=== PATIENT | female | born 1945 | race Caucasian/White ===

== ENCOUNTER 2019-12-27 19:41 | Inpatient (IN) | payer MEDICARE, OTHER, SELFPAY ==
--- NOTE | ~2019-12-27 | CT_ITS ---
EXAMINATION: CT brain wo con DATE: 12/27/2019 22:12 INDICATION: Altered mental status. TECHNIQUE: Computed tomography (CT) of the head was performed without intravenous contrast. The mA wa s adjusted according to patient size. Iterative reconstruction technique was employed. The dose-lengt h product was 605.33 mGy-cm. COMPARISON: None FINDINGS: There are scattered areas of low attenuation in the cerebral white matter. There is no intr acranial hemorrhage, acute infarction, or abnormal intracranial mass lesion. The ventricles are jolie l in size. There are likely changes of right ocular lens replacement surgery. There is mild mucosal t hickening in the ethmoid sinuses. There is a trace left mastoid effusion. IMPRESSION: 1. Mild nonspecific cerebral white matter disease, which likely represents chronic small vessel ische thiago disease. Reviewed, dictated and finalized at location A. IMPRESSION: 1. 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
--- NOTE | ~2019-12-27 | XR_ITS ---
EXAMINATION: XR chest 1V portable DATE: 12/27/2019 21:13 INDICATION: Fever. TECHNIQUE: A single frontal view of the chest was obtained. COMPARISON: None. FINDINGS: There is mild atelectasis in left lower lung zone. No pleural effusion or pneumothorax. The heart size is normal. IMPRESSION: 1. Mild atelectasis in left lower lung zone. Reviewed, dictated and finalized at location A.
[2019-12-27 19:41] VITALS: BP 133/58; PULSE 89; RESP 20; TEMP 38.1; O2SAT 92
--- NOTE | 2019-12-27 19:50 | ED.FEVER ---
HPI - Fever General Chief Complaint: Fever Stated Complaint: fever/aphasia Time Seen by Provider: 12/27/19 19:47 History of Present Illness HPI Narrative: Not feeling well since yesterday. Developed sweats, chills, and weakness over night. She was unable to get out of bed and urinated on herself. This morning she had a fever. She has not improved throughout the day. She also reports 3 loose stools yesterday. No SOB, although O2 sat of 90%. No nausea, vomiting, dysuria, abdominal pain, cough. EMS reports aphasia. This does not appear to be present. Related Data Home Medications Medication Instructions Recorded Confirmed atenolol 50 mg PO Q12H 12/28/19 12/28/19 citalopram 20 mg PO DAILY 12/28/19 12/28/19 esomeprazole magnesium [Nexium] 40 mg PO DAILY 12/28/19 12/28/19 gabapentin 600 mg PO Q12H 12/28/19 12/28/19 losartan-hydrochlorothiazide 1 tablet PO DAILY 12/28/19 12/28/19 rosuvastatin [Crestor] 10 mg PO DAILY 12/28/19 12/28/19 warfarin See Rx Instructions .ROUTE .COMPLEX 12/28/19 12/28/19 warfarin See Rx Instructions .ROUTE .COMPLEX 12/28/19 12/28/19 Allergies Allergy/AdvReac Type Severity Reaction Status Date / Time No Known Allergies Allergy Unverified 02/25/15 13:27 Review of Systems Review of Systems: All systems reviewed & are unremarkable except as noted in HPI and below Constitutional: Constitutional: Reports chills and Reports fever(s) ENT: Denies dizziness and Denies sore throat Cardiovascular: Cardiovascular: Denies chest pain Respiratory: Respiratory: Denies cough, Denies dyspnea and Denies wheezing Gastrointestinal: Gastrointestinal: Denies abdominal pain, Reports diarrhea, Denies nausea and Denies vomiting Genitourinary: Genitourinary: Denies hematuria, Denies dysuria and Reports urinary incontinence Neurologic: Denies headache(s), Denies focal weakness and Reports weakness Endocrine: Endocrine: Denies polydipsia [facility] Past Medical History Medical History (Updated 12/28/19 @ 21:20 by Bg Junior MD) Basal cell carcinoma Depression GERD (gastroesophageal reflux disease) History of DVT of lower extremity Hyperlipidemia Hypertension, essential Surgical History Surgical History (Updated 12/28/19 @ 11:36 by Karissa Valentin PA-C) History of total right hip arthroplasty Social History Social History (Updated 12/28/19 @ 11:36 by Karissa Valentin PA-C) Social History: Patient has never drank in never smoked and does not do drugs. She is a retired [employer] worker. She would like to be a full code. If she is unable to make decisions herself she appoints her daughter Kate to make decisions for her Smoking status: Never smoker Second hand tobacco smoke exposure: Yes Alcohol intake: never Substance use: never Substance use type: does not use Spiritual care concerns: No Exam Const: General: no acute distress, alert and ill appearing Orientation/consciousness: patient oriented x3 HENMT: Head: normal to inspection Resp: Effort & Inspection: normal respiratory effort Auscultation: clear to auscultation bilaterally Cardio: Rate: regular rate Rhythm: regular rhythm Peripheral pulses: Peripheral pulses 2+ throughout GI: Inspection: non-distended GI Palp: Yes Soft to palpation and No Tenderness to palpation present (GI) Skin: General skin exam: normal color Rashes: no rashes Wounds: no wounds Neuro: General: patient oriented x3, moves all extremities, no focal motor deficits and CN's II-XI intact bilaterally Speech: normal speech Extrem: General: normal to inspection Course Vital Signs Vital signs: Vital Signs Temperature 38.1 C H 12/27/19 19:41 Pulse Rate 89 12/27/19 19:41 Respiratory Rate 20 12/27/19 19:41 Blood Pressure 133/58 L 12/27/19 19:41 Pulse Oximetry 92 12/27/19 19:41 Temperature 37.7 C H 12/28/19 16:00 Pulse Rate 62 12/28/19 20:56 Respiratory Rate 15 12/28/19 16:00 Blood Pressure 144/67 H 12/28/19 16:00
[2019-12-27] MEDS: SODIUM CHLORIDE 0.9% IV 1,000 ML 999 ML IV CONT ×2 (20:04→21:53)
[2019-12-27 20:16] LABS: Basophils Percent Auto 0.1 % (0.2-1.2); Hemoglobin 13.6 g/dL (12.0-15.0); Immature Granulocyte Absolute 0.08 K/mm3 (0.00-0.031); Immature Granulocyte Percent A 0.6 % (0-0.5); Lymphocytes Absolute Auto 0.81 K/mm3 (0.9-3.2); Lymphocytes Percent Auto 5.6 % (18.3-44.2); Mean Corpuscular HGB Conc 32.4 g/dl (32-36); Mean Corpuscular Hemoglobin 29.6 pg (26-34); Mean Corpuscular Volume 91.3 fl (80-100); Mean Platelet Volume 10.5 fl (7.4-10.4); Monocytes Absolute Auto 0.7 K/mm3 (0.1-0.6); Monocytes Percent Auto 4.5 % (2.6-8.5); Neutrophils Absolute Auto 12.8 K/mm3 (1.3-6.7); Neutrophils Percent Auto 89.2 % (45.5-73.1); Platelet Count Result 144 k/mm3 (150-375); Red Cell Distribution Width 13.9 % (11.5-14.5); White Blood Count 14.4 K/mm3 (4.5-10.0)
[2019-12-27 20:26] LABS: INR 2.1; Prothrombin Time 22.8 Seconds (11.1-14.7)
[2019-12-27 20:27] LABS: Lactic Acid Reflex 0.9 mmol/L (0.7-2.1); Partial Thromboplastin Time 37.7 SECONDS (22.3-36.8)
[2019-12-27 20:29] LABS: Alanine Aminotransferase 10 U/L (4-35); Albumin Level 3.6 g/dL (3.5-5.1); Alkaline Phosphatase 86 U/L (38-126); Aspartate Amino Transferase 17 U/L (14-36); Bilirubin,Total 0.5 mg/dL (0.2-1.3); Blood Urea Nitrogen 21 mg/dL (7-17); Calcium 8.6 mg/dL (8.4-10.2); Carbon Dioxide 30 mmol/L (22-30); Chloride 101 mmol/L (98-107); Estimated CRCL calculation 52 ml/min; Estimated Glomerular Filt Rate 49; Glucose 101 mg/dL (65-105); Potassium 3.7 mmol/L (3.4-5.0); Sodium 133 mmol/L (137-145)
[2019-12-27 20:38] VITALS: BP 94/60; PULSE 71; RESP 18; O2SAT 90
[2019-12-27 20:39] LABS: CRP 6.4 mg/dL (<1.0)
[2019-12-27 21:08] LABS: Add Urine Microscopic? YES; Appearance Urine Clear (Clear); Bilirubin Urine 1+ (Negative); Blood Urine 1+ (Negative); Color Urine Yellow (Yellow); Glucose Urine UA Negative (Negative); Ketones Urine Trace mg/dL (Negative); Leukocyte Esterase Ur Negative LEU/UL (Negative); Mucus Urine Heavy /lpf; Nitrate Urine Negative (Negative); Protein Urine 1+ mg/dL (Negative); Squamous Epithelial Cell Urine Many /hpf (Few)
[2019-12-27 21:09] LABS: Specific Grav Ur 1.034 (1.001-1.035)
[2019-12-27 21:21] VITALS: BP 86/50; PULSE 67; RESP 18; O2SAT 92
[2019-12-27 22:39] VITALS: BP 91/46; PULSE 62; RESP 24; O2SAT 100
[2019-12-27 23:45] VITALS: BP 108/50; PULSE 64; RESP 18; O2SAT 98
[2019-12-28] VITALS (18 sets, daily range): BP systolic 88–150; BP diastolic 47–72; PULSE 62–85; RESP 15–25; TEMP 36.6–38.3; O2SAT 94–100; BMI 39.3
--- NOTE | 2019-12-28 00:40 | PC.NURSE ---
This patient, Stacey Weiss, was admitted to Intensive Care Unit-6. Patient/family oriented to hospital policies and general routines including ID bracelet, bed and alarms, visiting hours, pain management, procedures, bathroom and other care routines, personal items, smoking policy, room service/diet, and visiting hours. Valuables list has been completed. Information on how to activate the Rapid Response Team has been discussed. Patient/Family are encouraged to report perceived risks to care and to ask questions if they do not understand what they are told or what they should do.
[2019-12-28] MEDS: LACTATED RINGERS 1,000 ML 125 ML IV CONT ×2 (01:25→10:23)
[2019-12-28] MEDS: ACETAMINOPHEN 325 MG TABLET 650 MG PO (08:00)
[2019-12-28 11:10] LABS: SARS-CoV-2 RNA PCR Negative
--- NOTE | 2019-12-28 11:24 | PM.IMHP ---
H&P: HPI History of Present Illness Chief complaint: SIRS Narrative: Stacey Weiss is a 74 year old female who has a past medical history of DVTs, hypertension, GERD, and depression who presented emergency room for fevers and altered mental status. Patient states that she was in her usual state of health when she went to bed Saturday night and woke up in the middle night freezing. She said she felt very weak and could not get up out of bed which is very unusual for her. She was not sweating at this time and was unsure if she had a temperature as she did not take it. She felt disoriented and felt like she could not think straight. She fell back asleep and when she woke up on Saturday she was still very disoriented, weak and felt like she was in a fog. She had generalized weakness but no specific weakness, numbness, tingling or asymmetrical features. Her family came over and was trying to talk to her and she felt like she could not focus. She had some soft stool Saturday x3 but other than that has no diarrhea or GI upset. She also denies cough, shortness of breath, chest pain, nausea, vomiting, dysuria, rashes, wounds, or leg swelling. She has not been around anyone who was sick and she has been social distancing. When she goes out, she wears a mask and only goes to the grocery store and straight home. She has a family history of cardiac disease but has no history of shortness of breath, chest pain or dyspnea on exertion. She had stress few years ago which was normal. Review of Systems Review of Systems: All systems reviewed & are unremarkable except as noted in HPI and below [facility] Past Medical History Medical History (Updated 12/28/19 @ 11:36 by Karissa Valentin PA-C) Basal cell carcinoma Depression GERD (gastroesophageal reflux disease) History of DVT of lower extremity Hyperlipidemia Hypertension, essential Surgical History Surgical History (Updated 12/28/19 @ 11:36 by Karissa Valentin PA-C) History of total right hip arthroplasty Social History Social History (Updated 12/28/19 @ 11:36 by Karissa Valentin PA-C) Social History: Patient has never drank in never smoked and does not do drugs. She is a retired [employer] worker. She would like to be a full code. If she is unable to make decisions herself she appoints her daughter Kate to make decisions for her Smoking status: Never smoker Second hand tobacco smoke exposure: Yes Alcohol intake: never Substance use: never Substance use type: does not use Spiritual care concerns: No Meds Home Medications and Allergies Home Medications Medication Instructions Recorded Confirmed Type atenolol 50 mg PO Q12H 12/28/19 12/28/19 History citalopram 20 mg PO DAILY 12/28/19 12/28/19 History esomeprazole magnesium [Nexium] 40 mg PO DAILY 12/28/19 12/28/19 History gabapentin 600 mg PO Q12H 12/28/19 12/28/19 History losartan-hydrochlorothiazide 1 tablet PO DAILY 12/28/19 12/28/19 History rosuvastatin [Crestor] 10 mg PO DAILY 12/28/19 12/28/19 History warfarin See Rx Instructions .ROUTE .COMPLEX 12/28/19 12/28/19 History warfarin See Rx Instructions .ROUTE .COMPLEX 12/28/19 12/28/19 History Allergies Allergy/AdvReac Type Severity Reaction Status Date / Time No Known Allergies Allergy Unverified 02/25/15 13:27 Vital Signs Vital Signs - 24 hr 12/27/19 19:41 12/27/19 20:38 12/27/19 21:21 Temperature 100.6 F H Pulse Rate 89 71 67 Respiratory Rate 20 18 18 Blood Pressure 133/58 L 94/60 L 86/50 L Pulse Oximetry 92 90 92 12/27/19 22:39 12/27/19 23:45 12/28/19 00:17 Temperature 98.2 F Pulse Rate 62 64 62 Respiratory Rate 24 H 18 18 Blood Pressure 91/46 L 108/50 L 105/51 L Pulse Oximetry 100 98 97 12/28/19 00:24 12/28/19 00:46 12/28/19 00:49 Temperature 98.2 F 98.1 F Pulse Rate 63 71 63 Respiratory Rate 20 18 Blood Pressure 105/51 L 115/54 L Pulse Oximetry 100 97 12/28/19 02:00 12/28/19 04:00 12/28/19 04:15 Temperat
--- NOTE | 2019-12-28 11:44 | ECG_ITS ---
Measurements Intervals [place] Rate: 70 P: 27 CO: 153 QRS: 18 QRSD: 86 T: 30 QT: 402 QTc: 434 Interpretive Statements SINUS RHYTHM WITH SINUS ARRHYTHMIA BORDERLINE ST-T WAVE ABNORMALITY- ANTERIOR LEADS BORDERLINE ECG Electronically Signed On 12-28-2019 14:28:37 CDT by Gabe Fine D.O.
[2019-12-28] MEDS: GABAPENTIN 300 MG CAPSULE 600 MG PO ×2 (13:37→20:57)
[2019-12-28] MEDS: atenoloL 50 MG TABLET PO ×2 (13:37→20:56)
[2019-12-28] MEDS: CITALOPRAM HYDROBROMIDE 20 MG TABLET PO (13:37)
[2019-12-28] MEDS: PANTOPRAZOLE 40 MG TABLET PO (13:37)
[2019-12-28] MEDS: ROSUVASTATIN 10 MG TABLET PO (13:38)
[2019-12-28] MEDS: WARFARIN (*PBKC) 3 MG TABLET PO (17:45)
[2019-12-28] MEDS: LACTATED RINGERS 1,000 ML 100 ML IV CONT (18:13)
--- NOTE | 2019-12-28 18:40 | PC.NURSE ---
This patient, Stacey Weiss, was transferred to [facility] via wheelchair on 12/28/19 at 1745. Personal belongings sent with patient. Report given to DARRELL Zee. Appropriate documentation sent with patient.
[2019-12-29] MEDS: LACTATED RINGERS 1,000 ML 100 ML IV CONT ×2 (04:47→15:18)
[2019-12-29 06:00] VITALS: BP 130/51; PULSE 63; RESP 20; TEMP 36.9; O2SAT 98
[2019-12-29 06:05] LABS: Basophils Percent Auto 0.4 % (0.2-1.2); Eosinophils Percent Auto 0.6 % (0-4.4); Hematocrit 38.2 % (37.0-47.0); Hemoglobin 12.1 g/dL (12.0-15.0); Immature Granulocyte Absolute 0.03 K/mm3 (0.00-0.031); Immature Granulocyte Percent A 0.6 % (0-0.5); Immature Platelet Fraction Pct 3.1 % (0.9-11.2); Lymphocytes Absolute Auto 0.61 K/mm3 (0.9-3.2); Lymphocytes Percent Auto 11.8 % (18.3-44.2); Mean Corpuscular HGB Conc 31.7 g/dl (32-36); Mean Corpuscular Volume 91.6 fl (80-100); Monocytes Absolute Auto 0.5 K/mm3 (0.1-0.6); Monocytes Percent Auto 8.9 % (2.6-8.5); Neutrophils Percent Auto 77.7 % (45.5-73.1); Platelet Count Result 121 k/mm3 (150-375); Red Blood Count 4.17 M/mm3 (4.2-5.4); Red Cell Distribution Width 13.6 % (11.5-14.5); White Blood Count 5.2 K/mm3 (4.5-10.0)
[2019-12-29 06:12] LABS: INR 1.5; Prothrombin Time 17.6 Seconds (11.1-14.7)
[2019-12-29 06:28] LABS: Alanine Aminotransferase 16 U/L (4-35); Alkaline Phosphatase 82 U/L (38-126); Aspartate Amino Transferase 32 U/L (14-36); Bilirubin,Total 0.3 mg/dL (0.2-1.3); Blood Urea Nitrogen 14 mg/dL (7-17); CRP 7.2 mg/dL (<1.0); Calcium 8.3 mg/dL (8.4-10.2); Carbon Dioxide 27 mmol/L (22-30); Chloride 104 mmol/L (98-107); Estimated CRCL calculation 63 ml/min; Estimated Glomerular Filt Rate > 60; Glucose 88 mg/dL (65-105); Lactate Dehydrogenase 399 U/L (313-618); Magnesium 1.7 mg/dL (1.6-2.3); Phosphorus 2.9 mg/dL (2.5-4.5); Potassium 3.6 mmol/L (3.4-5.0); Sodium 134 mmol/L (137-145)
[2019-12-29] MEDS: MAGNESIUM SULF 2 GM/WATER 50ML 2 GM/50 ML BAG IVPB (07:56)
[2019-12-29 07:58] VITALS: BP 132/60; PULSE 61; RESP 14; TEMP 36.9; O2SAT 94
[2019-12-29 08:00] VITALS: PULSE 77
[2019-12-29] MEDS: CITALOPRAM HYDROBROMIDE 20 MG TABLET PO (08:00)
[2019-12-29] MEDS: PANTOPRAZOLE 40 MG TABLET PO (08:00)
[2019-12-29] MEDS: atenoloL 50 MG TABLET PO ×2 (08:00→21:19)
[2019-12-29] MEDS: ROSUVASTATIN 10 MG TABLET PO (08:01)
[2019-12-29] MEDS: GABAPENTIN 300 MG CAPSULE 600 MG PO ×2 (08:01→21:20)
--- NOTE | 2019-12-29 09:55 | PM.IMPN ---
Progress Note: A&P Assessment and Plan (1) SIRS (systemic inflammatory response syndrome): Code(s): R65.10 - Systemic inflammatory response syndrome (SIRS) of non-infectious origin without acute organ dysfunction Status: Acute Assessment and Plan: Patient presents due to disorientation and shaking chills at home. BP lowest 86/50, WBC 14,000 on arrival now resolved. Etiology unclear; no evidence of infection so far. Blood cultures pending; CXR shows mild atelectasis - add incentive spirometry. Urine culture negative. She has no other viral symptoms such as runny nose, sore throat, cough, or ear pain. Stroke less likely since she has no neurological deficits and her CT brain is negative. Plan to keep patient overnight to ensure blood cultures do not show any growth prior to discharge. Monitor vitals and urine output in the interim. (2) Anticoagulated: Code(s): Z79.01 - intermediate project manager (current) use of anticoagulants Status: Acute Assessment and Plan: Patient has history of DVT x 3 in the past; now is anticoagulated on warfarin. INR 1.5 today. Continue warfarin. (3) Generalized weakness: Code(s): R53.1 - Weakness Status: Acute Assessment and Plan: Appreciate PT/OT evaluation. Sudden onset of generalized weakness attributed to fever now feeling better. (4) Hypotension: Code(s): I95.9 - Hypotension, unspecified Status: Acute Assessment and Plan: Resolved with IV fluids. Continue to monitor BP. History of HTN; home ARB-HCTZ held, remains on her home beta blockade. (5) GERD (gastroesophageal reflux disease): Code(s): K21.9 - Gastro-esophageal reflux disease without esophagitis Status: Acute Assessment and Plan: Continue PPI. (6) Depression: Code(s): F32.9 - Major depressive disorder, single episode, unspecified Status: Acute Assessment and Plan: Stable. Continue home citalopram. (7) Hyperlipidemia: Code(s): E78.5 - Hyperlipidemia, unspecified Status: Acute Assessment and Plan: Continue home statin therapy. Subjective Date/time seen: 12/29/19 09:00 Interval history: Ms. Weiss is a 74yo F admitted for evaluation of fever or unknown origin. She reports she is feeling well today and offers no complaints other than feeling tired. She denies any chest pain, shortness of breath, or cough. She has tolerated some breakfast without nausea, vomiting, or abdominal pain. She reports when at home, she was having shaking chills and these have since resolved. Review of Systems Review of Systems: Narrative: Twelve systems were reviewed with pertinent positives and negatives as per HPI. Exam Narrative: Exam Narrative: General: Female resting comfortably in bed in no acute distress. HEENT: Normocephalic, EOMI, oral mucosa moist. Cardiovascular: Rate and rhythm are regular. Respiratory: Decreased breath sounds ELIER. Respirations even and nonlabored. Tolerating room air. Abdomen: Protuberant but soft, non-tender, bowel sounds present. Extremities: Peripheral pulses intact. No edema, cyanosis, or clubbing. Neuro: No focal neurological deficits. Speech is clear. Objective Data Vital Signs Vital Signs: Last Vital Signs Temp 98.5 F 12/29/19 07:58 Pulse 77 12/29/19 08:00 Resp 14 12/29/19 07:58 BP 132/60 12/29/19 07:58 Pulse Ox 94 12/29/19 07:58 Intake/Output Intake/Output: Intake & Output 12/26/19 12/27/19 12/28/19 12/29/19 23:59 23:59 23:59 23:59 Intake Total 2100 2520 1640 Output Total 15 350 500 Balance 2085 2170 1140 Meds/Results Medications: Active Medications Generic Name Dose Route Start Last Admin Trade Name Freq PRN Reason Stop Dose Admin Acetaminop
[2019-12-29 14:24] VITALS: BP 122/62; PULSE 65; RESP 19; TEMP 36.3; O2SAT 95
[2019-12-29] MEDS: WARFARIN (*PBKC) 3 MG TABLET PO (16:56)
[2019-12-29 21:19] VITALS: PULSE 68
[2019-12-29 22:00] VITALS: BP 128/56; PULSE 60; RESP 18; TEMP 36.7; O2SAT 96
[2019-12-30] MEDS: LACTATED RINGERS 1,000 ML 100 ML IV CONT (01:23)
[2019-12-30 05:49] LABS: Hematocrit 37.1 % (37.0-47.0); Immature Platelet Fraction Pct 2.9 % (0.9-11.2); Mean Corpuscular HGB Conc 32.3 g/dl (32-36); Mean Corpuscular Hemoglobin 29.4 pg (26-34); Mean Corpuscular Volume 90.9 fl (80-100); Mean Platelet Volume 10.4 fl (7.4-10.4); Platelet Count Result 122 k/mm3 (150-375); Red Blood Count 4.08 M/mm3 (4.2-5.4); Red Cell Distribution Width 13.5 % (11.5-14.5)
[2019-12-30 05:54] LABS: INR 1.6; Prothrombin Time 18.8 Seconds (11.1-14.7)
[2019-12-30 06:00] VITALS: BP 125/54; PULSE 60; RESP 18; TEMP 36.4; O2SAT 96
[2019-12-30 06:05] LABS: Blood Urea Nitrogen 14 mg/dL (7-17); Calcium 8.1 mg/dL (8.4-10.2); Carbon Dioxide 29 mmol/L (22-30); Chloride 106 mmol/L (98-107); Estimated CRCL calculation 72 ml/min; Estimated Glomerular Filt Rate > 60; Glucose 101 mg/dL (65-105); Potassium 3.5 mmol/L (3.4-5.0); Sodium 136 mmol/L (137-145)
[2019-12-30 08:42] VITALS: PULSE 61
[2019-12-30] MEDS: atenoloL 50 MG TABLET PO (08:42)
[2019-12-30] MEDS: GABAPENTIN 300 MG CAPSULE 600 MG PO (08:43)
[2019-12-30] MEDS: PANTOPRAZOLE 40 MG TABLET PO (08:43)
[2019-12-30] MEDS: CITALOPRAM HYDROBROMIDE 20 MG TABLET PO (08:43)
[2019-12-30] MEDS: ROSUVASTATIN 10 MG TABLET PO (08:43)
--- NOTE | 2019-12-30 08:49 | PM.DS ---
DS: Admitting Diagnosis Admitting Diagnosis Admitting Diagnosis: Systemic inflammatory response syndrome (SIRS) of non-infectious origin without acute organ dysfunction DS: Discharge Diagnosis Discharge Diagnosis (1) SIRS (systemic inflammatory response syndrome): Code(s): R65.10 - Systemic inflammatory response syndrome (SIRS) of non-infectious origin without acute organ dysfunction Status: Acute Assessment and Plan: Date of Service 12/30/19 Ms. Weiss is a 74yo F with history of hypertension, GERD, on long-term anticoagulation warfarin to multiple DVTs, hyperlipidemia, and depression who presented to the ED for evaluation a fever. EMS was activated due to fever, shaking chills, weakness, and aphasia. Patient reported she felt very disoriented and confused at that time. T-max 100.9? F here 6/15 AM. Ultimately, the etiology of her fever is unknown. Chest x-ray demonstrated mild atelectasis in left lower lung and she was educated on the importance of incentive spirometry, increasing activity. CT brain showed evidence consistent with some chronic small vessel ischemic disease without acute intracranial abnormalities. COVID-19 testing was negative. Urine culture was negative. Labs demonstrated a leukocytosis with WBC [id number] on arrival, resolved prior to discharge. Blood cultures pending on day of discharge with no growth to date, will follow to final. She denied any other viral symptoms such as runny nose, sore throat, cough, or ear pain. She was instructed to monitor closely for any further fevers or development symptoms and follow-up PCP she was hemodynamically stable for discharge 12/30/2019 with instructions to keep her regularly scheduled appointment with her PCP for tomorrow. Patient presents due to disorientation and shaking chills at home. BP lowest 86/50, WBC 14,000 on arrival now resolved. Etiology unclear; no evidence of infection so far. Blood cultures pending; CXR shows mild atelectasis - add incentive spirometry. Urine culture negative. (2) Anticoagulated: Code(s): Z79.01 - [facility] (current) use of anticoagulants Status: Acute Assessment and Plan: Patient has history of DVT x 3 in the past; now is anticoagulated on warfarin. INR 1.6 today. Continue warfarin and regular INR monitoring. (3) Generalized weakness: Code(s): R53.1 - Weakness Status: Acute Assessment and Plan: Sudden onset of generalized weakness attributed to fever now feeling better; evaluated by PT/OT. (4) Hypotension: Code(s): I95.9 - Hypotension, unspecified Status: Acute Assessment and Plan: Resolved with IV fluids. Continue to monitor BP. History of HTN; home ARB-HCTZ held, remains on her home beta blockade. (5) GERD (gastroesophageal reflux disease): Code(s): K21.9 - Gastro-esophageal reflux disease without esophagitis Status: Acute Assessment and Plan: Continue PPI. (6) Depression: Code(s): F32.9 - Major depressive disorder, single episode, unspecified Status: Acute Assessment and Plan: Stable. Continue home citalopram. (7) Hyperlipidemia: Code(s): E78.5 - Hyperlipidemia, unspecified Status: Acute Assessment and Plan: Continue home statin therapy. DS: Summary Time Spent with Patient Time attestation: Total time spent providing and/or coordinating discharge services: 35 minutes Exam Narrative: Exam Narrative: General: Female resting comfortably in bed in no acute distress. HEENT: Normocephalic, EOMI, oral mucosa moist. Cardiovascular: Rate and rhythm are regular. Respiratory: Decreased breath sounds ELIER. Respirations even and nonlabored. Tolerating room air. A
== END 2019-12-30 10:13 | disposition home or self-care (01) | DRG 864 ==
LOC: ANHED 20:27 → ANHICU 12-28 00:03 → ANH2MED 12-28 21:20 → ANHICU 01-04 14:20
PROVIDERS: Physician Assistant; Admitting Provider Internal Medicine; Emergency Provider Emergency Medicine; PCP Internal Medicine; Visit Provider Physician Assistant
DX: R50.9 Fever, unspecified (principal); R65.10 Systemic inflammatory response syndrome (SIRS) of non-infectious origin without acute organ dysfunction; I95.9 Hypotension, unspecified; R41.0 Disorientation, unspecified; Z20.828 Contact with and (suspected) exposure to other viral communicable diseases; R53.1 Weakness; I10 Essential (primary) hypertension; E78.5 Hyperlipidemia, unspecified; K21.9 Gastro-esophageal reflux disease without esophagitis; F32.9 Major depressive disorder, single episode, unspecified; Z96.641 Presence of right artificial hip joint; Z79.01 Long term (current) use of anticoagulants; Z79.899 Other long term (current) drug therapy; Z85.828 Personal history of other malignant neoplasm of skin; Z86.718 Personal history of other venous thrombosis and embolism
CPT/HCPCS: 36415; 51701; 70450; 71045; 80048; 80053; 80076; 81001; 82728; 83605; 83615; 83735; 84100; 84443; 85025; 85027; 85055; 85610; 85730; 86140; 87040; 87086; 87635; 93005; 96361; 96365; 97161; 97165; 99285; A9270; C9803; J0131; J3475; J7030; J7120; U0003

== ENCOUNTER 2020-01-21 12:30 | Outpatient (CLI) | payer MEDICARE, OTHER, SELFPAY ==
--- NOTE | 2020-01-21 | ECHO_ITS ---
Patient Info Name: Stacey Weiss Age: 75 years : 1945 Gender: Female Ht: 66 in Wt: 250 lbs BSA: 2.35 m2 HR: 58 bpm BP: 113 / 78 mmHg Heart Rhythm: Sinus Rhythm Technical Quality: Good Exam Date: 01/21/2020 1:20 PM Exam Location: [facility] Patient Status: Outpatient Admit Date: 01/21/2020 Staff Ordering Physician: TimLuis Daniel MD Outside Plant Field Engineer: Yu Esquivel RDCS Attending Provider: DebbyLuis Daniel MD Exam Type: CA echo doppler color flow Study Info Indications R60.9 - Edema, unspecified Complete two-dimensional, color flow and Doppler transthoracic echocardiogram is performed. Summary 1. Left ventricular systolic function is normal, estimated at 55-60%. 2. The left ventricular diastolic function is grade II diastolic dysfunction. 3. Global longitudinal strain is mildly elevated at -17 %. 4. There is no aortic valve stenosis. 5. There is mild mitral valve regurgitation. 6. There is mild tricuspid valve regurgitation. 7. No pulmonary hypertension, estimated pulmonary arterial systolic pressure is 25 mmHg. Left Ventricle Left ventricular chamber dimension is normal. Left ventricular systolic function is normal, estimated at 55-60%. There is mildly increased left ventricular wall thickness. The left ventricular diastolic function is grade II diastolic dysfunction. Global longitudinal strain is mildly elevated at -17 %. Right Ventricle Right ventricular chamber dimension is normal. Right ventricular systolic function is normal. Left Atria Left atrial chamber dimension is normal. Right Atria Right atrial chamber dimension is normal. Aortic Valve The aortic valve is probable trileaflet. There is mild aortic valve sclerosis. There is no aortic valve stenosis. There is trace aortic valve regurgitation. Pulmonic Valve The pulmonic valve is not well visualized. There is trace pulmonic regurgitation. Mitral Valve The mitral valve has normal leaflets. There is mild mitral valve regurgitation. The mitral valve annulus is moderately calcified. Tricuspid Valve The tricuspid valve leaflets are normal. There is mild tricuspid valve regurgitation. No pulmonary hypertension, estimated pulmonary arterial systolic pressure is 25 mmHg. Pericardium/Pleural The pericardium appears normal. There is no pericardial effusion. Inferior Vena Cava Normal inferior vena cava with >50% collapse upon inspiration consistent with normal right atrial pressure, 5 mmHg. Aorta The aortic root size at the sinus of Valsalva is normal. Left Ventricular Outflow Tract Name Value Normal LVOT 2D LVOT Diameter 2.0 cm LVOT Doppler LVOT Peak Gradient 5 mmHg LVOT Mean Gradient 3 mmHg LVOT VTI 27 cm LVOT VTI/AV VTI Ratio 0.7 LVOT Stroke Volume 89 ml LVOT CO 4.9 l/min LVOT CI 2.1 l/min/m2 Pulmonic Valve
== END 2020-01-21 12:31 | disposition home or self-care (01) ==
LOC: ANHCARD 12:31
PROVIDERS: PCP Internal Medicine; Visit Provider Internal Medicine
DX: R60.9 Edema, unspecified (principal); I36.1 Nonrheumatic tricuspid (valve) insufficiency; I34.0 Nonrheumatic mitral (valve) insufficiency
CPT/HCPCS: 93306

== ENCOUNTER 2023-12-28 13:42 | Emergency (ER) | payer MEDICARE, OTHER, SELFPAY ==
[2023-12-28] VITALS (7 sets, daily range): BP systolic 93–109; BP diastolic 46–64; PULSE 66–75; RESP 13–20; TEMP 36.6; O2SAT 89–97
--- NOTE | ~2023-12-28 | US_ITS ---
US pelvic complete w TV Ordering provider: Donis Shelton MD History: . post menopausal VB . Comparison: None. Technique: Transabdominal and endovaginal ultrasound of the pelvis (Doppler ultrasound interrogation techniques used as needed for this exam.) FINDINGS: CERVIX: Normal. UTERUS: Measures 8.3x 3.9x 4.6 cm in length which is within normal limits and is anteverted. No myom etrial masses.Scattered calcifications are noted ENDOMETRIUM: Normal in thickness measuring 16 mm. Cystic areas are seen. . CUL DE SAC: No free fluid. RIGHT OVARY: Not visualized. LEFT OVARY: Not visualized. ADNEXA: Cysts noted in the left side measuring 2.5 x 2.5 x 2.1 cm. IMPRESSION: Markedly thickened endometrium. Further evaluation to exclude endometrial carcinoma is advised. Cysti c changes are noted in the endometrium with uterine calcifications. Ovaries are not demonstrated. Reviewed, dictated and finalized at location A. IMPRESSION: Markedly thickened endometrium. Further evaluation to exclude endometrial carci noma is advised. Cystic changes are noted in the endometrium with uterine calci fications. Ovaries are not demonstrated.
[2023-12-28 14:56] LABS: Basophils Percent Auto 0.3 % (0.2-1.2); Eosinophils Percent Auto 0.2 % (0-4.4); Hematocrit 45.2 % (37.0-47.0); Hemoglobin 14.3 g/dL (12.0-15.0); Immature Granulocyte Absolute 0.05 K/mm3 (0.00-0.031); Immature Granulocyte Percent A 0.4 % (0-0.5); Lymphocytes Absolute Auto 1.02 K/mm3 (0.9-3.2); Lymphocytes Percent Auto 8.1 % (18.3-44.2); Mean Corpuscular HGB Conc 31.6 g/dl (32-36); Mean Corpuscular Hemoglobin 28.7 pg (26-34); Mean Corpuscular Volume 90.6 fl (80-100); Mean Platelet Volume 9.7 fl (7.4-10.4); Monocytes Absolute Auto 0.9 K/mm3 (0.1-0.6); Neutrophils Absolute Auto 10.6 K/mm3 (1.3-6.7); Platelet Count Result 219 k/mm3 (150-375); Red Blood Count 4.99 M/mm3 (4.2-5.4); Red Cell Distribution Width 15.5 % (11.5-14.5); White Blood Count 12.6 K/mm3 (4.5-10.0)
[2023-12-28 15:04] LABS: Alanine Aminotransferase 11 U/L (6-35); Albumin Level 3.9 g/dL (3.5-5.1); Alkaline Phosphatase 107 U/L (38-126); Anion Gap 5 mmol/L (4-12); Aspartate Amino Transferase 15 U/L (14-36); Bilirubin,Total 0.8 mg/dL (0.2-1.3); Blood Urea Nitrogen 19 mg/dL (7-17); Calcium 8.9 mg/dL (8.4-10.2); Carbon Dioxide 30 mmol/L (22-30); Chloride 102 mmol/L (98-107); Estimated CRCL calculation 39 ml/min; Estimated Glomerular Filt Rate 36; Glucose 123 mg/dL (65-110); Potassium 3.5 mmol/L (3.4-5.0); Sodium 137 mmol/L (137-145)
[2023-12-28 15:28] LABS: INR 2.9; Prothrombin Time 30.4 Seconds (11.1-14.7)
[2023-12-28 15:29] LABS: Partial Thromboplastin Time 45.9 Seconds (22.3-36.8)
[2023-12-28 16:51] LABS: Appearance Urine Clear (Clear); Bacteria Urine None Seen /hpf; Bilirubin Urine Negative (Negative); Blood Urine Negative (Negative); Color Urine Yellow (Yellow); Glucose Urine UA 3+ mg/dL (Negative); Ketones Urine Negative (Negative); Leukocyte Esterase Ur Trace LEU/UL (Negative); Need Manual Microscopic Reviewed; Nitrate Urine Negative (Negative); Protein Urine Negative (Negative); RBC Urine 0-2 /hpf (0-2); Specific Grav Ur 1.021 (1.001-1.035); Squamous Epithelial Cell Urine Occasional /hpf (Few); WBC Urine 0-5 /hpf (0-3); pH Urine 5.5 (5.0-9.0)
[2023-12-28 16:52] LABS: Add Urine Microscopic? YES
--- NOTE | 2023-12-28 17:02 | ED.GENADULT ---
HPI - General Adult General Chief complaint: Vaginal Bleeding Stated complaint: abd pain Time Seen by Provider: 12/28/23 14:24 History of Present Illness HPI narrative: Patient is a 78-year-old female who presents ER with vaginal bleeding and abdominal cramping. Ongoing for weeks. She has scheduled follow-up with a grocery store courtesy clerk for further evaluation. She does take a blood thinner. No lightheadedness. patient reports chronic dyspnea with exertion due to heart failure but it has not worsened since her symptoms began. Fevers or chills. No urinary symptoms. Related Data Home Medications Medication Instructions Recorded Confirmed atenolol 50 mg tablet 50 mg PO Q12H 12/28/19 12/28/19 citalopram 20 mg tablet 20 mg PO DAILY 12/28/19 12/28/19 esomeprazole magnesium 40 mg 40 mg PO DAILY 12/28/19 12/28/19 capsule,delayed release (Nexium) gabapentin 600 mg tablet 600 mg PO Q12H 12/28/19 12/28/19 losartan 100 1 tablet PO DAILY 12/28/19 12/28/19 mg-hydrochlorothiazide 12.5 mg tablet rosuvastatin 10 mg tablet (Crestor) 10 mg PO DAILY 12/28/19 12/28/19 warfarin 3 mg tablet See Rx Instructions .Route .COMPLEX 12/28/19 12/28/19 warfarin 5 mg tablet See Rx Instructions .Route .COMPLEX 12/28/19 12/28/19 Allergies Allergy/AdvReac Type Severity Reaction Status Date / Time No Known Allergies Allergy Unverified 02/25/15 13:27 Review of Systems Review of Systems: All systems reviewed & are unremarkable except as noted in HPI and below Constitutional: Constitutional: Reports no additional constitutional complaints ENT: Reports system reviewed and no additional complaints, except as documented Cardiovascular: Cardiovascular: Reports no additional cardiovascular complaints Respiratory: Respiratory: Reports no additional respiratory complaints Gastrointestinal: Gastrointestinal: Reports abdominal pain, Denies diarrhea, Denies nausea and Denies vomiting Genitourinary: Genitourinary: Reports abnormal vaginal bleeding, Denies nocturia, Denies dysuria and Denies vaginal discharge [facility] Past Medical History Medical History (Updated 12/29/23 @ 00:00 by Trent Sierra) Basal cell carcinoma Depression GERD (gastroesophageal reflux disease) History of DVT of lower extremity Hyperlipidemia Hypertension, essential Surgical History Surgical History (Updated 12/28/19 @ 11:36 by Karissa Gabriel PA-C) History of total right hip arthroplasty Family History Family History Sibling Cancer Father Diabetes mellitus Father Acute myocardial infarction Mother Acute myocardial infarction Social History Social History (Updated 12/28/19 @ 11:36 by Karissa Gabriel PA-C) Social History: Patient has never drank in never smoked and does not do drugs. She is a retired [employer] worker. She would like to be a full code. If she is unable to make decisions herself she appoints her daughter Kate to make decisions for her Smoking status: Never smoker Second hand tobacco smoke exposure: Yes Alcohol intake: never Substance use: never Substance use type: does not use Spiritual care concerns: No Exam Narrative: GENERAL: Well-appearing, Obese, and in no acute distress. HEAD: Normocephalic, atraumatic. ENT: Mucous membranes moist. CHEST: Clear to auscultation. No respiratory distress. HEART: Regular rate and rhythm. Normal peripheral pulses. ABDOMEN: Soft, nontender, nondistended. EXTREMITIES: Normal range of motion. No edema. SKIN: Warm, dry, no rash. NEURO: Alert and oriented x3. PSYCH: Normal mood and affect. Course Course Emergency Course: discussed concerns for endometrial cancer and a postmenopausal woman with vaginal bleeding. Ultrasound concerning for this as well. She is to follow-up with her grocery store courtesy clerk. Her hemoglobin 15 is stable at 14.3. INR 2.9. Vital Signs Vital signs: Vital Signs Temperature 98 F 12/28/23 14
== END 2023-12-28 18:59 | disposition home or self-care (01) ==
PROVIDERS: Emergency Provider Emergency Medicine; PCP Internal Medicine
DX: N93.9 Abnormal uterine and vaginal bleeding, unspecified (principal); I50.9 Heart failure, unspecified; I11.0 Hypertensive heart disease with heart failure; E78.5 Hyperlipidemia, unspecified; K21.9 Gastro-esophageal reflux disease without esophagitis; F32.A Depression, unspecified; Z96.641 Presence of right artificial hip joint; Z85.828 Personal history of other malignant neoplasm of skin; Z86.718 Personal history of other venous thrombosis and embolism; Z79.01 Long term (current) use of anticoagulants; Z79.899 Other long term (current) drug therapy; R93.89 Abnormal findings on diagnostic imaging of other specified body structures
CPT/HCPCS: 36415; 76830; 76856; 80053; 81001; 85025; 85610; 85730; 99284